=== PATIENT | male | born 1975 ===

== ENCOUNTER 2017-11-10 03:41 | Outpatient (CLI) | payer SELFPAY ==
[2017-11-10 08:32] LABS: HEMOGLOBIN A1C 5.6 % (4.5-6.2)
[2017-11-10 08:46] LABS: CHOL/HDL RATIO 2.27 (0.00-4.99)
== END 2017-11-10 23:59 | disposition home or self-care (01) ==
LOC: HW HEART 03:41
DX: Z00.00 Encounter for general adult medical examination without abnormal findings (principal)
CPT/HCPCS: 36415

== ENCOUNTER 2018-11-09 01:32 | Outpatient (CLI) | payer SELFPAY ==
[2018-11-09 08:55] LABS: HEMOGLOBIN A1C 5.9 % (4.5-6.2)
[2018-11-09 09:09] LABS: CHOL/HDL RATIO 2.7 (0.00-4.99)
== END 2018-11-09 23:59 | disposition home or self-care (01) ==
LOC: HW HEART 01:32
DX: Z13.6 Encounter for screening for cardiovascular disorders (principal)
CPT/HCPCS: 36415